=== PATIENT | male | born 1985 | race African-American/Black ===

== ENCOUNTER 2018-08-14 19:46 | Emergency (ER) | payer SELFPAY ==
[~2018-08-14] VITALS: Ht 172.7 cm; Wt 91.0 kg
[2018-08-14] MEDS ORDERED: KETOROLAC 60MG/2ML VIAL IM ONE (22:30)
[2018-08-15 00:40] VITALS: BP 139/85
== END 2018-08-15 00:40 | disposition home or self-care (01) ==
LOC: ER 23:02
DX: M62.838 Other muscle spasm (principal); M54.12 Radiculopathy, cervical region; F17.210 Nicotine dependence, cigarettes, uncomplicated; Z71.6 Tobacco abuse counseling; F12.10 Cannabis abuse, uncomplicated
CPT/HCPCS: 73030; 96372; 99283; 99406; J1885

== ENCOUNTER 2022-05-16 18:22 | Emergency (ER) | payer BC, OTHER ==
[~2022-05-16] VITALS: Ht 172.7 cm; Wt 93.0 kg
[2022-05-17] MEDS ORDERED: HYDROCODONE/ACETAMINOPHEN 5/325MG TABLET PO STA (00:32)
[2022-05-17] MEDS ORDERED: HYDROCODONE/ACETAMINOPHEN 5/325MG TABLET PO NR (03:30)
[2022-05-17] MEDS ORDERED: BACL-141 MT (04:01)
[2022-05-17] MEDS ORDERED: IBUP-2029 MT (04:01)
[2022-05-17 05:00] VITALS: BP 135/95
== END 2022-05-17 06:00 | disposition home or self-care (01) ==
LOC: ER 18:31
DX: S43.492A Other sprain of left shoulder joint, initial encounter (principal); S16.1XXA Strain of muscle, fascia and tendon at neck level, initial encounter; S29.011A Strain of muscle and tendon of front wall of thorax, initial encounter; S93.691A Other sprain of right foot, initial encounter; M79.642 Pain in left hand; M79.645 Pain in left finger(s); R03.0 Elevated blood-pressure reading, without diagnosis of hypertension; V49.49XA Driver injured in collision with other motor vehicles in traffic accident, initial encounter; Y93.89 Activity, other specified; Y92.488 Other paved roadways as the place of occurrence of the external cause
CPT/HCPCS: 71045; 72040; 73030; 73130; 73630; 99284; A4565